=== PATIENT | male | born 1985 | race Caucasian/White ===

== ENCOUNTER 2020-09-26 14:45 | Emergency (ER) | payer BC, SELFPAY ==
[2020-09-26 14:45] VITALS: BP 135/57; PULSE 98; RESP 16; TEMP 36.9; O2SAT 98; BMI 20.9
--- NOTE | 2020-09-26 15:13 | XR_ITS ---
PROCEDURE: XR ANKLE LT MIN 3V CLINICAL INDICATION: cellulitis, r/o osteo Pain, IV drug use COMPARISON: CR XR TIBIA FIBULA LT 2V from 09/26/2020 CR XR FOOT LT 2V from 09/26/2020 FINDINGS: No fracture or dislocation. No lytic or blastic change. There is normal mineralization. The joint spaces are well-preserved. No significant degenerative/arthritic changes. No erosive changes evident. Other findings:Mild soft tissue swelling at the medial malleolar region. IMPRESSION: Mild soft tissue swelling medial malleolar region otherwise negative Dictated by: Sergio Lopez MD 09/27/2020 06:02 Sergio Lopez MD in [place] 09/27/2020 06:02
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
[2020-09-26 15:57] LABS: Alanine Aminotransferase 54 U/L (12-78); Albumin Level 4.6 g/dl (3.5-5.0); Albumin/Globulin Ratio 1.3 (1.1-1.8); Alkaline Phosphatase 107 U/L (38-126); Anion Gap 10.3 mEq/L (5-15); Aspartate Amino Transferase 46 U/L (17-59); Bilirubin,Total 0.6 mg/dl (0.2-1.3); Blood Urea Nitrogen 15 mg/dl (9-20); Calcium 9.2 mg/dl (8.4-10.2); Carbon Dioxide 29 mmol/L (22.0-30.0); Chloride 102 mmol/L (98-107); Creatinine Clearance Estimated 149 mL/min (50-200); Estimated Glomerular Filt Rate 130 ml/min (>60); GFR (African American) 157 ML/MIN (>60); Globulin 3.6 g/dL (1.3-3.2); Glucose 92 mg/dl (74-100); Potassium 4.3 mmoL/L (3.5-5.1); Sodium 137 mmol/L (136-145); Total Protein,Serum 8.2 g/dl (6.3-8.2)
[2020-09-26 16:02] LABS: C-Reactive Protein 14.8 mg/L (0-4)
[2020-09-26 16:21] LABS: Basophils # 0.1 K/mm3 (0-0.2); Basophils % 0.8 % (0.1-2.0); Eosinophils # 0.2 K/mm3 (0.0-0.4); Eosinophils % 2.5 % (0.1-12.0); Hematocrit 38.5 % (42.0-52.0); Hemoglobin 12.8 g/dL (14.1-18.0); Lymphocytes # 1.7 K/mm3 (0.7-4.5); Lymphocytes % 23.4 % (10-50); Mean Corpuscular HGB Conc 33.2 g/dL (31.8-35.4); Mean Corpuscular Hemoglobin 28.6 pg (27.0-31.2); Mean Corpuscular Volume 86.1 fl (80-94); Mean Platelet Volume 6.6 fl (7.4-10.4); Monocytes # 0.5 K/mm3 (0.1-1.0); Monocytes % 6.7 % (1.7-9.3); Neutrophils # 4.9 K/mm3 (1.8-7.8); Neutrophils % 66.5 % (37.0-80.0); Platelet Count 324 K/mm3 (142-424); Red Blood Count 4.47 M/mm3 (4.60-6.20); Red Cell Distribution Width 12.9 % (11.5-17.5); White Blood Count 7.3 K/mm3 (4.8-10.8)
[2020-09-26 16:22] VITALS: BP 112/67; PULSE 78; O2SAT 97
[2020-09-26 16:30] VITALS: BP 115/70; PULSE 81; O2SAT 97
[2020-09-26 16:43] LABS: Erythrocyte Sedimentation Rate 24 mm/hr (0-15)
[2020-09-26 17:00] VITALS: BP 123/75; PULSE 89; O2SAT 90
[2020-09-26 19:50] VITALS: BP 132/74; PULSE 84; RESP 14; TEMP 36.9; O2SAT 97
== END 2020-09-26 19:53 | disposition home or self-care (01) ==
PROVIDERS: Emergency Provider Emergency Medicine
DX: L03.116 Cellulitis of left lower limb (principal)
CPT/HCPCS: 36415; 73590; 73610; 73620; 80053; 85025; 85651; 86140; 99282

== ENCOUNTER 2020-12-04 00:48 | Emergency (ER) | payer BC, SELFPAY ==
[2020-12-04 00:59] VITALS: BP 141/68; PULSE 117; RESP 22; TEMP 36.7; O2SAT 99; BMI 25.3
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
[2020-12-04 01:31] VITALS: BP 137/69; PULSE 110; RESP 20; TEMP 36.7; O2SAT 99
== END 2020-12-04 01:32 ==
PROVIDERS: Emergency Provider Emergency Medicine
DX: S00.31XA Abrasion of nose, initial encounter (principal); V89.2XXA Person injured in unspecified motor-vehicle accident, traffic, initial encounter; F17.210 Nicotine dependence, cigarettes, uncomplicated; F10.10 Alcohol abuse, uncomplicated
CPT/HCPCS: 99282

== ENCOUNTER 2021-01-27 06:17 | Emergency (ER) | payer BC, SELFPAY ==
[2021-01-27 06:18] VITALS: BP 121/98; PULSE 86; RESP 14; TEMP 36.8; O2SAT 97; BMI 20.9
--- NOTE | 2021-01-27 06:30 | CT_ITS ---
PROCEDURE INFORMATION: Exam: CT Abdomen And Pelvis With Contrast Exam date and time: 01/27/2021 6:30 AM Age: 35 years old Clinical indication: Abdominal pain; Generalized; Additional info: Llq pain TECHNIQUE: Imaging protocol: Computed tomography of the abdomen and pelvis with contrast. Radiation optimization: All CT scans at this facility use at least one of these dose optimization techniques: automated exposure control; mA and/or kV adjustment per patient size (includes targeted exams where dose is matched to clinical indication); or iterative reconstruction. Contrast material: ISOVUE; Contrast volume: 75 ml; Contrast route: IV; COMPARISON: [facility] CT CHEST W/O CONTRAST 10/06/2016 12:05 AM FINDINGS: Liver: Normal. No mass. Gallbladder and bile ducts: Normal. No calcified stones. No ductal dilation. Pancreas: Normal. No ductal dilation. Spleen: 11 mm hypodensity is probably a simple cyst. Otherwise, unremarkable. Adrenal glands: Normal. No mass. Kidneys and ureters: Normal. No hydronephrosis. Stomach and bowel: Large amount of stool in the colon. The remaining intestine is unremarkable. No other inflammatory change. No obstruction. Appendix: No evidence for appendicitis. Normal diameter. No inflammation. Intraperitoneal space: Unremarkable. No free air. No significant fluid collection. Vasculature: Unremarkable. No abdominal aortic aneurysm. Lymph nodes: Unremarkable. No enlarged lymph nodes. Urinary bladder: Unremarkable as visualized. Reproductive: Unremarkable as visualized. Bones/joints: Unremarkable. No acute fracture. Soft tissues: Unremarkable. IMPRESSION: 1. Large amount of stool in the colon. This finding can be associated with constipation. 2. No other acute changes in the abdomen or pelvis.
[2021-01-27 06:46] LABS: Basophils # 0.1 K/mm3 (0-0.2); Basophils % 0.9 % (0.1-2.0); Eosinophils # 0.2 K/mm3 (0.0-0.4); Eosinophils % 2.6 % (0.1-12.0); Hematocrit 41.2 % (42.0-52.0); Hemoglobin 13.6 g/dL (14.1-18.0); Lymphocytes # 2.1 K/mm3 (0.7-4.5); Lymphocytes % 31.3 % (10-50); Mean Corpuscular HGB Conc 33.1 g/dL (31.8-35.4); Mean Corpuscular Hemoglobin 27.6 pg (27.0-31.2); Mean Corpuscular Volume 83.5 fl (80-94); Mean Platelet Volume 6.5 fl (7.4-10.4); Monocytes # 0.4 K/mm3 (0.1-1.0); Monocytes % 6.2 % (1.7-9.3); Neutrophils % 58.9 % (37.0-80.0); Platelet Count 320 K/mm3 (142-424); Red Blood Count 4.94 M/mm3 (4.60-6.20); Red Cell Distribution Width 13.1 % (11.5-17.5); White Blood Count 6.7 K/mm3 (4.8-10.8)
[2021-01-27 06:52] LABS: Amylase 55 U/L (30-110); Lipase 86 U/L (23-300)
[2021-01-27 06:53] LABS: Alanine Aminotransferase 72 U/L (12-78); Albumin Level 5.2 g/dl (3.5-5.0); Albumin/Globulin Ratio 1.2 (1.1-1.8); Alkaline Phosphatase 127 U/L (38-126); Aspartate Amino Transferase 54 U/L (17-59); Bilirubin,Total 0.5 mg/dl (0.2-1.3); Blood Urea Nitrogen 17 mg/dl (9-20); Calcium 9.7 mg/dl (8.4-10.2); Carbon Dioxide 32 mmol/L (22.0-30.0); Chloride 100 mmol/L (98-107); Creatinine Clearance Estimated 148 mL/min (50-200); Estimated Glomerular Filt Rate 129 ml/min (>60); GFR (African American) 156 ML/MIN (>60); Globulin 4.4 g/dL (1.3-3.2); Glucose 54 mg/dl (74-100); Sodium 143 mmol/L (136-145); Total Protein,Serum 9.6 g/dl (6.3-8.2)
[2021-01-27 06:58] LABS: C-Reactive Protein 9.5 mg/L (0-4)
[2021-01-27 07:17] LABS: Erythrocyte Sedimentation Rate 18 mm/hr (0-15)
--- NOTE | 2021-01-27 07:23 | HMH.EDNVD ---
ED Disposition Clinical Impression: Heroin abuse Constipation Qualifiers: Constipation type: drug induced constipation Qualified Code(s): K59.03 - Drug induced constipation Disposition: Home, Self-Care Condition on Discharge: Good Instructions: DI for Constipation Additional Instructions: fluids and use daily laxative Prescriptions: polyethylene glycoL 3350 [Miralax 17gm Packet] 17 gm PO DAILY #30 packet Transmission Status: Pending to [id number] Referrals: Provider,Referral, [Primary Care Provider] - - Critical Care Critical Care Time: No Attestation: On 01/27/21, the high probability of a clinically significant, sudden or life threatening deterioration of the following system(s) required my full and direct attention, intervention and personal management. The time I documented below is in addition to time spent performing reported procedures but includes the following listed in this critical care notation. Medical Decision Making - Medical Records Medical records reviewed: Yes: I reviewed the patient's medical records. - Agustín Inquiry Pt receiving controlled substance: No Vital Signs: 01/27/21 06:18 Temperature 98.3 F Temperature Source Oral Pulse Rate [Right] 86 Respiratory Rate 14 Blood Pressure [Right Arm] 121/98 H Blood Pressure Mean [Right Arm] 105 02 Sat by Pulse Oximetry 97 - Lab Data Lab results reviewed: Yes: I reviewed the patient's lab results. Lab Results 01/27/21 06:34: WBC 6.7, RBC 4.94, Hgb 13.6 L, Hct 41.2 L, MCV 83.5, MCH 27.6, MCHC 33.1, RDW 13.1, Plt Count 320, MPV 6.5 L, Neut % (Auto) 58.9, Lymph % (Auto) 31.3, [place] % (Auto) 6.2, Eos % (Auto) 2.6, Baso % (Auto) 0.9, Neut # (Auto) 4.0, Lymph # (Auto) 2.1, [place] # (Auto) 0.4, Eos # (Auto) 0.2, Baso # (Auto) 0.1 01/27/21 06:34: C-Reactive Protein 9.5 H, Amylase 55, Lipase 86, Procalcitonin 0.200 01/27/21 06:34: Sodium 143, Potassium 4.0, Chloride 100, Carbon Dioxide 32 H, Anion Gap 15.0, BUN 17, Creatinine 0.70, Estimated Creat Clear 148, Estimated GFR 129, Est GFR ( Amer) 156, Glucose 54 L, Calcium 9.7, Total Bilirubin 0.5, AST 54, ALT 72, Alkaline Phosphatase 127 H, Total Protein 9.6 H, Albumin 5.2 H, Globulin 4.4 H, Albumin/Globulin Ratio 1.2 01/27/21 06:34: ESR 18 H 01/27/21 06:34: Thyroxine (T4) 11.9 H Result diagrams: 01/27/21 06:34 01/27/21 06:34 Orders (Tests/Meds): ED MEDICATIONS Generic Name Dose Route Start Last Admin Trade Name Freq PRN Reason Stop Dose Admin Sodium Chloride 8 ml 01/27/21 06:31 Sodium Chloride 0.9% 10ml Vial IV 02/26/21 06:30 NEEDED PRN dilute pepcid Discontinued Medications Generic Name Dose Route Start Last Admin Trade Name Freq PRN Reason Stop Dose Admin Famotidine 20 mg 01/27/21 06:31 01/27/21 06:34 Famotidine 20mg/2ml Vial IV 01/27/21 06:32 20 mg ONCE ONE Administration Sodium Chloride 1,000 mls @ 999 mls/hr 01/27/21 06:45 01/27/21 06:34 Sod Chlor 0.9% 1000ml Bag IV 01/27/21 07:45 999 mls/hr .Q1H1M MARIO Administration Iopamidol 75 ml 01/27/21 06:56 01/27/21 06:57 Iopamidol-370 (76%);100ml Bottle IV 01/27/21 06:57 75 ml ONCE ONE Administration Magnesium Citrate 1 bot 01/27/21 06:33 Magnesium Citrate 10oz Bottle PO 01/27/21 06:34 ONCE ONE Metoclopramide HCl 10 mg 01/27/21 06:31 01/27/21 06:34 Metoclopramide Hcl 10mg/2ml Vial IVP 01/27/21 06:32 10 mg ONCE ONE Administration Sodium Chloride 10 ml 01/27/21 06:56 01/27/21 06:57 Sodium Chloride 0.9% 10ml Syr (Rad Only) IV 01/27/21 06:57 10 ml ONCE ONE Administration ORDERS Category Date Time Status CT abdomen pelvis w con Stat Cat Scan 01/27/21 06:30 Taken T4 (Thyroxine) Stat Lab 01/27/21 06:34 Results TSH [Thyroid Stimulating Hormone] Stat Lab 01/27/21 06:34 Results UA [Urinalysis and Microscopic] Stat Lab 01/27/21 06:32 Ordered - CT Data CT Scan: Abdomen, Pelvis Time Received: 08:[address] Revie
[2021-01-27 07:57] LABS: T4 (Thyroxine) 11.9 ug/dl (5.53-11.0)
[2021-01-27 08:15] VITALS: BP 134/71; PULSE 84; RESP 18; TEMP 36.8; O2SAT 98
== END 2021-01-27 08:28 | disposition home or self-care (01) ==
PROVIDERS: Emergency Provider Emergency Medicine
DX: T40.1X1A Poisoning by heroin, accidental (unintentional), initial encounter (principal); K59.03 Drug induced constipation; F17.210 Nicotine dependence, cigarettes, uncomplicated
CPT/HCPCS: 74177; 80053; 82150; 83690; 84145; 84436; 84443; 85025; 85651; 86140; 96365; 99283; Q9967

== ENCOUNTER 2021-02-13 05:50 | Emergency (ER) | payer BC, SELFPAY ==
[2021-02-13 06:02] VITALS: BP 109/91; PULSE 92; RESP 22; TEMP 36.5; O2SAT 100; BMI 20.3
[2021-02-13 06:54] LABS: Basophils % 0.4 % (0.1-2.0); Eosinophils % 1.1 % (0.1-12.0); Hematocrit 36.2 % (42.0-52.0); Hemoglobin 12.6 g/dL (14.1-18.0); Lymphocytes # 0.4 K/mm3 (0.7-4.5); Lymphocytes % 11.2 % (10-50); Mean Corpuscular HGB Conc 34.7 g/dL (31.8-35.4); Mean Corpuscular Hemoglobin 27.9 pg (27.0-31.2); Mean Corpuscular Volume 80.4 fl (80-94); Mean Platelet Volume 8.4 fl (7.4-10.4); Monocytes # 0.1 K/mm3 (0.1-1.0); Neutrophils # 3.2 K/mm3 (1.8-7.8); Neutrophils % 85.2 % (37.0-80.0); Platelet Count 241 K/mm3 (142-424); Red Cell Distribution Width 13.1 % (11.5-17.5); White Blood Count 3.8 K/mm3 (4.8-10.8)
[2021-02-13 06:56] LABS: MANUAL DIFFERENTIAL MANUAL DIFFERENTIAL (MANUAL DIFF)
[2021-02-13 07:04] LABS: Lymphocytes % 18 % (10-50); Monocytes % 1 % (2-9); Neutrophils % 76 % (42-76); Platelet Estimate Normal; RBC Morphology Normal; Total Cells Counted 100
--- NOTE | 2021-02-13 07:07 | HMH.EDGENADL ---
ED Disposition Clinical Impression: Abdominal pain Qualifiers: Abdominal location: unspecified location Qualified Code(s): R10.9 - Unspecified abdominal pain Disposition: Still a Patient Condition on Discharge: Fair Instructions: DI for Low Back Pain Referrals: Provider,Referral, [Primary Care Provider] - - Critical Care Critical Care Time: No Attestation: On 02/13/21, the high probability of a clinically significant, sudden or life threatening deterioration of the following system(s) required my full and direct attention, intervention and personal management. The time I documented below is in addition to time spent performing reported procedures but includes the following listed in this critical care notation. Medical Decision Making - Agustín Inquiry Pt receiving controlled substance: No Vital Signs: 02/13/21 06:02 02/13/21 07:17 Temperature 97.7 F Temperature Source Oral Pulse Rate 115 H Pulse Rate [Right] 92 H Respiratory Rate 22 Blood Pressure 121/61 Blood Pressure [Right Arm] 109/91 L Blood Pressure Mean [Right Arm] 97 Blood Pressure Source [Right Arm] Automatic Cuff Blood Pressure Position [Right Arm] Sitting 02 Sat by Pulse Oximetry 100 100 Oxygen Delivery Method Room Air - Lab Data Lab Results 02/13/21 06:40: WBC 3.8 L, RBC 4.50 L, Hgb 12.6 L, Hct 36.2 L, MCV 80.4, MCH 27.9, MCHC 34.7, RDW 13.1, Plt Count 241, MPV 8.4, Neut % (Auto) 85.2 H, Lymph % (Auto) 11.2, [place] % (Auto) 2.0, Eos % (Auto) 1.1, Baso % (Auto) 0.4, Neut # (Auto) 3.2, Lymph # (Auto) 0.4 L, [place] # (Auto) 0.1, Eos # (Auto) 0.0, Baso # (Auto) 0.0, Total Counted 100, Neutrophils % (Manual) 76, Band Neutrophils % 5.0, Lymphocytes % (Manual) 18, Monocytes % (Manual) 1 L, Platelet Estimate Normal, RBC Morphology Normal 02/13/21 06:40: Sodium 139, Potassium 3.8, Chloride 103, Carbon Dioxide 24, Anion Gap 15.8 H, BUN 15, Creatinine 0.70, Estimated Creat Clear 143, Estimated GFR 129, Est GFR ( Amer) 156, Glucose 94, Calcium 9.2, Total Bilirubin 0.7, AST 48, ALT 60, Alkaline Phosphatase 114, C-Reactive Protein 4.1 H, Total Protein 7.5, Albumin 4.4, Globulin 3.1, Albumin/Globulin Ratio 1.4 02/13/21 07:05: SARS-CoV-2 (PCR) Not detected, Influenza A Untype (PCR) Not detected, Influenza Type B (PCR) Not detected Result diagrams: 02/13/21 06:40 02/13/21 06:40 Orders (Tests/Meds): ED MEDICATIONS Discontinued Medications Generic Name Dose Route Start Last Admin Trade Name Freq PRN Reason Stop Dose Admin Ketorolac Tromethamine 30 mg 02/13/21 07:50 02/13/21 07:51 Ketorolac 30mg/Ml Vial IV 02/13/21 07:51 30 mg ONCE ONE Administration Ondansetron HCl 4 mg 02/13/21 07:50 02/13/21 07:51 Ondansetron 4mg/2ml Vial IV 02/13/21 07:51 4 mg ONCE ONE Administration ORDERS Category Date Time Status CT abdomen pelvis w con Stat Cat Scan 02/13/21 07:43 Ordered Complete Blood Count Auto Diff Stat Lab 02/13/21 06:40 Results Erythrocyte Sedimentation Rate Stat Lab 02/13/21 06:40 Results UA [Urinalysis and Microscopic] Stat Lab 02/13/21 07:18 Ordered Medical Decision Narrative: The patient is a 35-year-old male who presents to the emergency department with 40 minutes of paraspinal neck and back pain, chills, nausea, diffuse abdominal pain. On arrival he is afebrile with stable vital signs. He is very well-appearing. His physical exam is nonconcerning. He has no abdominal tenderness. He does report paraspinal neck and back tenderness all the way down the C, T, and L-spine. Differential gnosis includes COVID-19, spinal epidural abscess, endocarditis, other viral infection. Given this plan to obtain CBC, CMP, ESR, CRP, COVID-19 swab. The patient is not vaccinated against COVID-19 and his sister is having similar symptoms so I have high suspicion for COVID-19 or other viral infection. Given that his pain extends from the C, T, and L spines and is paraspinal I have low suspicion for a spinal epidura
[2021-02-13 07:09] LABS: Chloride 103 mmol/L (98-107); Potassium 3.8 mmoL/L (3.5-5.1); Sodium 139 mmol/L (136-145)
[2021-02-13 07:11] LABS: Alanine Aminotransferase 60 U/L (12-78); Albumin Level 4.4 g/dl (3.5-5.0); Albumin/Globulin Ratio 1.4 (1.1-1.8); Alkaline Phosphatase 114 U/L (38-126); Anion Gap 15.8 mEq/L (5-15); Aspartate Amino Transferase 48 U/L (17-59); Bilirubin,Total 0.7 mg/dl (0.2-1.3); Blood Urea Nitrogen 15 mg/dl (9-20); Carbon Dioxide 24 mmol/L (22.0-30.0); Creatinine Clearance Estimated 143 mL/min (50-200); Estimated Glomerular Filt Rate 129 ml/min (>60); GFR (African American) 156 ML/MIN (>60); Globulin 3.1 g/dL (1.3-3.2); Total Protein,Serum 7.5 g/dl (6.3-8.2)
[2021-02-13 07:12] LABS: Calcium 9.2 mg/dl (8.4-10.2); Glucose 94 mg/dl (74-100)
[2021-02-13 07:16] LABS: Coronavirus 19, PCR Not Detected (NotDetected); Influenza A, PCR Not Detected (NotDetected); Influenza B, PCR Not Detected (NotDetected)
[2021-02-13 07:17] VITALS: BP 121/61; PULSE 115; O2SAT 100
[2021-02-13 07:17] LABS: C-Reactive Protein 4.1 mg/L (0-4)
--- NOTE | 2021-02-13 07:30 | PC.NURSE ---
PT MOANING IN PAIN , C/O PAIN IN BACK GOING AROUND TO ABD , PT VOMITING ALL OVER HIMSELF , PALE IN COLOR PT ADMITS TO USING HEROIN AROUND 3 AM , SO SAYS THIS IS NOT WITHDRAWLS. IV STARTED AND MEDS GIVEN AND PT CLEANED UP , HE WAS HYPERVENTILATING AND HANDS STARTING TO DRAWL . AFTER MEDS PT RESTING SAYS HE FEELS MUCH BETTER STILL PALE IN COLOR ,
--- NOTE | 2021-02-13 07:43 | CT_ITS ---
PROCEDURE INFORMATION: Exam: CT Abdomen And Pelvis With Contrast Exam date and time: 02/13/2021 7:43 AM Age: 35 years old Clinical indication: Abdominal pain; Generalized; Additional info: Abdominal pain, vomiting TECHNIQUE: Imaging protocol: Computed tomography of the abdomen and pelvis with contrast. Radiation optimization: All CT scans at this facility use at least one of these dose optimization techniques: automated exposure control; mA and/or kV adjustment per patient size (includes targeted exams where dose is matched to clinical indication); or iterative reconstruction. Contrast material: ISOVUE; Contrast volume: 75 ml; Contrast route: IV; COMPARISON: CT ABDOMEN PELVIS W CON 01/27/2021 6:38 AM FINDINGS: Liver: Normal. No mass. Gallbladder and bile ducts: Periportal edema and fluid surrounding the gallbladder, suggesting aggressive fluid resuscitation. If there is clinical concern for acute cholecystitis, recommend gallbladder ultrasound. Pancreas: Normal. No ductal dilation. Spleen: Stable low-attenuation lesion in the spleen measures 9 mm, may be cyst or hemangioma. Adrenal glands: Normal. No mass. Kidneys and ureters: Normal. No hydronephrosis. Stomach and bowel: Large amount of stool throughout the colon, as seen on previous. Appendix: No evidence of appendicitis. Intraperitoneal space: Unremarkable. No free air. No significant fluid collection. Vasculature: Unremarkable. No abdominal aortic aneurysm. Lymph nodes: Unremarkable. No enlarged lymph nodes. Urinary bladder: Unremarkable as visualized. Reproductive: Unremarkable as visualized. Bones/joints: Unremarkable. No acute fracture. Soft tissues: Unremarkable. IMPRESSION: 1. Periportal edema and fluid surrounding the gallbladder, suggesting aggressive fluid resuscitation. If there is clinical concern for acute cholecystitis, recommend gallbladder ultrasound. 2. Large amount of stool throughout the colon, as seen on previous.
[2021-02-13 08:14] VITALS: TEMP 37.7
--- NOTE | 2021-02-13 08:24 | PC.NURSE ---
PT GONE TO CT
[2021-02-13 09:45] LABS: Appearance,Urine SL CLOUDY (Clear); Bilirubin,Urine Negative (Negative); Blood, Urine Negative (Negative); Color,Urine YELLOW (Yellow); Glucose,Urine (UA) Negative (Negative); Ketones,Urine Negative (Negative); Leukocyte Esterase,Urine Negative (Negative); Microscopic, Urine URINE MICROSCOPIC (MICROSCOPIC); Nitrate,Urine Negative (Negative); Protein,Urine Negative (Negative); Specific Gravity, Urine 1.025 (1.005-1.030); Urobilinogen,Urine 0.2 EU/dl (0.2)
[2021-02-13 09:57] LABS: Squamous Epithelial Cell,Urine Occasional #/hpf (0-5)
--- NOTE | 2021-02-13 10:33 | PC.NURSE ---
Pt is sleeping soundly at this time.
--- NOTE | 2021-02-13 11:06 | PC.NURSE ---
PT TRYING TO GET A HOLD OF FAMILY TO COME GET HIM
[2021-02-13 11:14] VITALS: BP 97/62; PULSE 64; RESP 16; TEMP 36.9; O2SAT 100
== END 2021-02-13 11:16 | disposition home or self-care (01) ==
PROVIDERS: Emergency Provider Emergency Medicine
DX: M54.5 Low back pain (principal); M54.2 Cervicalgia; R11.0 Nausea; F19.11 Other psychoactive substance abuse, in remission; Z20.822 Contact with and (suspected) exposure to COVID-19; F17.210 Nicotine dependence, cigarettes, uncomplicated
CPT/HCPCS: 36415; 74177; 80053; 81001; 85007; 85025; 86140; 96367; 96374; 99283; J2405; Q9967; U0003

== ENCOUNTER 2022-09-19 19:22 | Emergency (ER) | payer BC, SELFPAY ==
[2022-09-19 20:10] VITALS: BP 129/84; PULSE 67; RESP 21; TEMP 36.8; O2SAT 96; BMI 20.3
--- NOTE | 2022-09-19 20:32 | EXP.UTC ---
Discharge Plan Disposition Patient Disposition: Home, Self-Care Condition: Good Prescriptions Prescriptions: New ondansetron 4 mg tablet,disintegrating 4 mg PO Q8H PRN (Reason: nausea and vomiting) Qty: 10 0RF No Action polyethylene glycol 3350 17 GM powder in packet 17 gm PO DAILY Qty: 30 0RF ondansetron 8 MG tablet,disintegrating 8 mg PO QID 4 Days Qty: 16 0RF Rx Instructions: Take 1 tablet every 6 hours as needed for nausea or vomiting Referrals Follow up/Referrals: Provider,Referral, MD [Primary Care Provider] - See instructions Activity Restrictions/Add. Instructions Additional Instructions/Restrictions: Drink extra fluids with and between meals. If you have difficulty drinking, try very small amounts of water or suck on ice chips. ? Avoid fruit juices, as these do not replace minerals and can actually increase diarrhea. ? Children and adults can use sports drinks to replenish electrolytes. Younger children and infants should use products formulated for children, like oral rehydration solutions. ? Eat food in small amounts and let your stomach recover. ? Get lots of rest. You may feel tired or weak. ? No greasy or fried foods for the next 24-48 hours BRAT diet Bananas Rice Apples and [place] ? Make sure to drink plenty of liquids ? Return if needed ? Straight to ER if any life threatening symptoms ? Zofran as prescribed ? Follow up with family doctor in the next 48-72 hours if no improvement or any worsening of symptoms Straight to ER if you have any abdominal pain or any life threatening symptoms Clinical Impressions Clinical Impression: Nausea and vomiting Qualifiers: Vomiting type: unspecified Qualified Code(s): R11.2 - Nausea with vomiting, unspecified Stand Alone Forms Stand Alone Forms: Work/School Release Instructions Patient Instructions: Nausea and Vomiting-Adult Discharge ED Provider: Tia Larson [facility] General Stated complaint: vomiting headache Mode of Arrival: Ambulatory Source of Information: Patient Limitations: No Limitations Time Seen by Provider: 09/19/22 20:32 Description of Symptoms (Recalled from Triage Doc. by RN): PATIENT C/O VOMITING THAT STARTED THIS MORNING HEENT Symptoms (Recalled from RN notes): No Resp Symptoms (Recalled from RN notes): No Skin Symptoms (Recalled from RN notes): No MS Symptoms (Recalled from RN notes): No Functional Status (Recalled from RN notes): WNL History of Present Illness Provider Complaint: Patient states that he had been around family member that has had the stomach bug States that he woke up this morning with vomiting States that he has been having N/V all day today Denies diarrhea States that he had normal BM yesterday and normal bowel movement in the UTC denies abdominal pain Related Data Previous Rx's Medication Instructions Recorded polyethylene glycol 3350 17 gram 17 gm PO DAILY #30 packets 01/27/21 oral powder packet ondansetron 8 mg disintegrating 8 mg PO QID Nausea & vomiting 4 02/13/21 tablet days #16 tabs ondansetron 4 mg disintegrating 4 mg PO Q8H PRN nausea and 09/19/22 tablet vomiting #10 tabs Allergies Allergy/AdvReac Type Severity Reaction Status Date / Time No Known Allergies Allergy Unverified 06/26/17 15:03 Worker's Comp Is this a Worker's Comp case?: No [facility] Disclaimer: The information contained in this section may have been updated after the patient was seen, as this information can be updated by other users. Social History Smoking Status: Current every day smoker tobacco type: cigarettes packs per day: 1 alcohol intake: current substance use type: heroin current occupational status: unemployed Travel in the last 8 weeks: None ROS Obtained: Yes All systems reviewed & no additional complaints except as documented and Yes Systems reviewed as appropriate & no additional complaints e
[2022-09-19 20:51] VITALS: BP 129/84; PULSE 67; RESP 21; TEMP 36.8; O2SAT 96
== END 2022-09-19 21:09 | disposition home or self-care (01) ==
PROVIDERS: Emergency Provider Nurse Practitioner
DX: R51.9 Headache, unspecified (principal); R11.2 Nausea with vomiting, unspecified; F17.210 Nicotine dependence, cigarettes, uncomplicated; F11.10 Opioid abuse, uncomplicated
CPT/HCPCS: 99212; 99214; G0463

== ENCOUNTER 2022-12-04 16:15 | Emergency (ER) | payer BC, SELFPAY ==
--- NOTE | 2022-12-04 16:25 | EXP.UTC ---
Discharge Plan Disposition Patient Disposition: Home, Self-Care Condition: Good Prescriptions Prescriptions: New diphenhydramine HCl [Diphenhydramine HCl] 25 mg capsule 25 mg PO Q6HP PRN (Reason: Itching) Qty: 30 0RF methylprednisolone 4 mg Tablets,Dose Pack 4 mg PO DIRECTED Qty: 21 0RF Referrals Follow up/Referrals: Provider,Referral, MD [Primary Care Provider] - See instructions Activity Restrictions/Add. Instructions Additional Instructions/Restrictions: Try to identify and avoid contact with the offending substance. Don't start the oral steroids until tomorrow. The diphenhydramine (benedryl) will make you drowsy, so don't drive or operate heavy machinery after taking it. Follow up with your regular doctor. GO TO THE ER FOR ANY WORSENING SYMPTOMS OR CONCERNS Clinical Impressions Clinical Impression: Poison ciarra Instructions Patient Instructions: DI for Poison Ciarra Allergy Discharge ED Provider: Neto De La Cruz [facility] General Stated complaint: Poison Ciarra Time Seen by Provider: 12/04/22 16:25 History of Present Illness Provider Complaint: He states that for the past 4 days he has had a worsening itchy rash on his face and bilateral forearms. Related Data Previous Rx's Medication Instructions Recorded diphenhydramine HCl 25 mg capsule 25 mg PO Q6HP PRN Itching #30 caps 12/04/22 methylprednisolone 4 mg tablets in 4 mg PO DIRECTED #21 tabs 12/04/22 a dose pack Allergies Allergy/AdvReac Type Severity Reaction Status Date / Time No Known Allergies Allergy Verified 12/04/22 16:29 [facility] Disclaimer: The information contained in this section may have been updated after the patient was seen, as this information can be updated by other users. Medical History No significant past medical history Surgical History No significant past surgical history Family History Other No significant family history Social History Smoking Status: Current every day smoker tobacco type: cigarettes packs per day: 1 alcohol intake: current substance use type: heroin current occupational status: unemployed Travel in the last 8 weeks: None ROS Obtained: Yes All systems reviewed & no additional complaints except as documented Constitutional Constitutional: Denies chills and Denies fever(s) Eyes Eyes: Denies eye discharge ENT Ears, Nose, Mouth, and Throat: Denies dizziness, Denies otalgia and Denies sore throat Cardiovascular Cardiovascular: Denies chest pain Respiratory Respiratory: Denies shortness of breath, Denies chest congestion, Denies cough, Denies stridor and Denies wheezing Gastrointestinal Gastrointestingal: Denies nausea or vomiting Musculoskeletal Musculoskeletal: Reports system reviewed and no additional complaints, except as documented and Denies arthralgias Integumentary/Breasts Skin/Breast: Reports as per HPI and Reports rash Neurologic Neurologic: Denies dizziness and Denies paresthesias Allergic/Immunologic Allergic/Immunologic: Denies wheezing Physical Exam General General appearance: alert and in no apparent distress Head Head exam: atraumatic, normocephalic and normal inspection Eye Eye exam: Present normal appearance, PERRL and EOMI ENT ENT exam: Present normal exam, normal oropharynx, mucous membranes moist, TM's normal bilaterally and normal external ear exam Neck Neck exam: Present normal inspection, full ROM and trachea midline; Absent meningismus or lymphadenopathy Chest Chest inspection: Present normal inspection and symmetric chest wall rise; Absent tenderness Respiratory Respiratory exam: Present normal lung sounds bilaterally; Absent respiratory distress Cardiovascular Cardiovascular exam: Present regular rate and normal rhythm; A
[2022-12-04 16:30] VITALS: BP 109/74; PULSE 75; RESP 16; TEMP 36.5; O2SAT 95; BMI 22.3
[2022-12-04 17:24] VITALS: BP 109/74; PULSE 75; RESP 16; TEMP 36.5; O2SAT 95
== END 2022-12-04 17:26 | disposition home or self-care (01) ==
PROVIDERS: Emergency Provider Nurse Practitioner Family
DX: L23.7 Allergic contact dermatitis due to plants, except food (principal); F17.210 Nicotine dependence, cigarettes, uncomplicated
CPT/HCPCS: 96372; 99212; 99214; G0463